=== PATIENT | male | born 1990 | race Caucasian/White ===

== ENCOUNTER 2017-07-09 14:02 | Emergency (ER) | payer MEDICARE, MEDICAID ==
--- NOTE | 2017-07-09 15:52 | ED Physician Documentation ---
PD HPI HEENT - Stated complaint Stated Complaint: THROAT PX - Chief complaint Chief Complaint: Heent - History obtained from History obtained from: Patient - History of Present Illness Timing - onset: How many days ago (6-7) Timing - duration: Days (6-7) Timing - details: Gradual onset, Still present Location: Throat Worsens: Swalllowing Associated symptoms: Swollen nodes, Other (sore throat). No: Fever, Unable to swallow, Facial swelling Similar symptoms before: Diagnosis (has had tonsillitis once or twice a year for the past several years.) Recently seen: Not recently seen Review of Systems Constitutional: denies: Fever, Chills Nose: denies: Rhinorrhea / runny nose, Congestion Throat: reports: Sore throat, Swollen tonsils Respiratory: denies: Dyspnea, Cough GI: denies: Nausea, Vomiting, Diarrhea PD PAST MEDICAL HISTORY - Past Medical History Cardiovascular: None Respiratory: None Neuro: None Endocrine/Autoimmune: None - Present Medications Home Medications: Ambulatory Orders Medication Instructions Recorded Confirmed Cephalexin [Keflex] 500 mg PO TID #24 capsule 07/09/17 Dexamethasone [Decadron] 4 mg PO DAILY #5 tablet 07/09/17 lamoTRIgine [LaMICtal] 300 mg PO DAILY 07/09/17 07/09/17 - Allergies Allergies/Adverse Reactions: Allergies Allergy/AdvReac Type Severity Reaction Status Date / Time No Known Drug Allergies Allergy Verified 07/09/17 14:08 PD ED PE NORMAL - Vitals Vital signs reviewed: Yes - General General: Alert and oriented X 3, No acute distress (mild hoarseness of voice. ) , Well developed/nourished - HEENT HEENT: No: Pharynx benign (tonsils very enlarged with exudate, with mild right peritonsillar edema but no true abscess appearance as yet. ) - Neck Neck: Supple, no meningeal sign, Other (anterior adenopathy. ) - Cardiac Cardiac: RRR, No murmur - Respiratory Respiratory: Clear bilaterally - Abdomen Abdomen: Soft, Non tender - Derm Derm: Normal color, Warm and dry, No rash Results - Vitals Vitals: Vital Signs - 24 hr 07/09/17 07/09/17 14:05 16:32 Temperature 35.9 C L 36.6 C Heart Rate 78 67 Respiratory 18 18 Rate Blood Pressure 128/79 110/62 O2 Saturation 98 98 Oxygen O2 Source Room air PD MEDICAL DECISION MAKING - ED course Complexity details: considered differential (has appearance of tonsillitis and some swelling right peritonsillar, so concern for early peritonsillar abscess. ) , d/w patient Departure - Departure Disposition: 01 Home, Self Care Clinical Impression: Exudative tonsillitis Condition: Stable Record reviewed to determine appropriate education?: Yes Instructions: ED Strep Pharyngitis Poss Follow-Up: [facility] [Provider Group] Prescriptions: Cephalexin [Keflex] 500 mg PO TID #24 capsule Dexamethasone [Decadron] 4 mg PO DAILY #5 tablet Comments: Cephalexin three times daily as directed. Decadron to assist with swelling daily for 5 days. Continue Tylenol or ibuprofen if needed for pain and fevers. Drink lots of fluids. You can call the ear nose and throat office to set up an appointment and discuss with them the criteria for tonsillectomy given the recurrent infections you have had. Discharge Date/Time: 07/09/17 16:32
[2017-07-09] MEDS ORDERED: cephALEXin 250 MG CAPSULE PO STA (16:11)
[2017-07-09] MEDS ORDERED: DEXAMETHASONE 10 MG/ML VIAL PO STA (16:11)
[2017-07-09] MEDS ORDERED: CHERRY SYRUP 10 ML UDC PO ONE (16:30)
[2017-07-09 16:34] VITALS: BP 110/62
== END 2017-07-09 16:32 | disposition home or self-care (01) ==
LOC: ED 14:02
DX: J03.90 Acute tonsillitis, unspecified (principal)
CPT/HCPCS: 99283; A9270; 87430

== ENCOUNTER 2019-08-12 17:33 | Outpatient (CLI) | payer MEDICARE, MEDICAID | END 2019-08-12 17:34 | disposition critical access hospital (66) | LOC: EMS 17:33 | PROVIDERS: ATTEND Surgery | DX: N50.819 Testicular pain, unspecified (principal) | CPT/HCPCS: A0425; A0429 ==

== ENCOUNTER 2019-08-12 17:52 | Emergency (ER) | payer MEDICARE, MEDICAID ==
--- NOTE | 2019-08-12 17:57 | ED Physician Documentation ---
PD HPI MALE - Stated complaint Stated Complaint: MALE - History obtained from History obtained from: Patient (29-year-old gentleman who is been having ongoing problem with the left testicle for the last month and a half. States that several times now it has twisted and he twisted back. Today he had this happen and he could not twist it back. Pain at this point is a 0 but a 2 on the ride up here. Denies urinary complaints. Has not seen a doctor for this. Was planning to see his primary care physician tomorrow for this.) Review of Systems Ten Systems: 10 systems reviewed and negative Eyes: reports: Reviewed and negative Throat: reports: Reviewed and negative Cardiac: reports: Reviewed and negative Respiratory: reports: Reviewed and negative PD PAST MEDICAL HISTORY - Past Medical History Cardiovascular: None Respiratory: None Endocrine/Autoimmune: None - Present Medications Home Medications: Ambulatory Orders Medication Instructions Recorded Confirmed Cephalexin [Keflex] 500 mg PO TID #24 capsule 07/09/17 dexAMETHasone [Decadron] 4 mg PO DAILY #5 tablet 07/09/17 lamoTRIgine [LaMICtal] 300 mg PO DAILY 07/09/17 07/09/17 - Allergies Allergies/Adverse Reactions: Allergies Allergy/AdvReac Type Severity Reaction Status Date / Time No Known Drug Allergies Allergy Verified 08/12/19 17:58 - Social History Does the pt smoke?: No Smoking Status: Never smoker - Family History Family history: reports: Non contributory PD ED PE NORMAL - Vitals Vital signs reviewed: Yes - General General: Alert and oriented X 3, No acute distress - HEENT HEENT: PERRL, EOMI - Neck Neck: Supple, no meningeal sign, No bony TTP - Cardiac Cardiac: RRR, No murmur - Respiratory Respiratory: No respiratory distress, Clear bilaterally - Abdomen Abdomen: Soft, Non tender - Male Male : Other (Left testicle lie is normal, normal cremaster reflex. Nontender except maybe a slight amount of tenderness at the epididymis. Nonswollen.) - Back Back: No CVA TTP, No spinal TTP - Derm Derm: Normal color, Warm and dry - Extremities Extremities: No edema, No calf tenderness / cord - Neuro Neuro: Alert and oriented X 3, Normal speech Results - Vitals Vitals: Vital Signs - 24 hr 08/12/19 17:55 Temperature 36.8 C Heart Rate 83 Respiratory 17 Rate Blood Pressure 149/86 H O2 Saturation 98 Oxygen O2 Source Room air - Labs Labs: Laboratory Tests 08/12/19 19:04 Urine Color YELLOW Urine Clarity CLEAR Urine pH 7.0 Ur Specific Imogene <=1.005 Urine Protein NEGATIVE Urine Glucose (UA) NEGATIVE Urine Ketones NEGATIVE Urine Occult Blood NEGATIVE Urine Nitrite NEGATIVE Urine Bilirubin NEGATIVE Urine Urobilinogen 0.2 (NORMAL) Ur Leukocyte Esterase NEGATIVE Ur Microscopic Review NOT INDICATED Urine Culture Comments NOT INDICATED PD MEDICAL DECISION MAKING - ED course ED course: He presents with a chief complaint of a "twisted testicle." That said his pain and exam are not too suggestive of a torsion. Ultrasound is ordered. Departure - Departure Disposition: 01 Home, Self Care Clinical Impression: Testicular pain, left Condition: Good Record reviewed to determine appropriate education?: Yes Instructions: ED Testicular Pain [facility] Comments: Your ultrasound is normal, this makes torsion very unlikely. Return if pain recurs. Followup with your physician tomorrow as scheduled.
[2019-08-12 19:12] LABS: BILIRUBIN,URINE NEGATIVE (NEGATIVE); GLUCOSE, URINE (UA) NEGATIVE (NEGATIVE); KETONES,URINE (UA) NEGATIVE (NEGATIVE); LEUKOCYTE ESTERASE, URINE NEGATIVE (NEGATIVE); NITRITE,URINE NEGATIVE (NEGATIVE); OCCULT BLOOD,URINE NEGATIVE (NEGATIVE); PROTEIN,URINE NEGATIVE (NEGATIVE); UROBILINOGEN,URINE 0.2 (NORMAL) E.U./dL (NORMAL)
[2019-08-12 19:13] LABS: CLARITY,URINE CLEAR (CLEAR)
--- NOTE | 2019-08-12 19:33 | Ultrasound Report ---
Reason: L testicle pain Procedure Date: 08/12/2019 Accession Number: [id number] / [id number] Procedure: US - Testicle w/Doppler CPT Code: Final Report FULL RESULT: EXAM: SCROTAL ULTRASOUND EXAM DATE: 08/12/2019 07:01 PM. CLINICAL HISTORY: L testicle pain. COMPARISON: None. TECHNIQUE: Real-time scanning was performed with static images obtained. Color-flow images were utilized. FINDINGS: Right: Testis: 4.3 x 2.3 x 3.3 cm. Normal size and echotexture. No mass, calcification, or abnormal blood flow. Epididymis: 0.6 x 1.6 x 1.8 cm. Normal size and echotexture. A subcentimeter cyst noted. no abnormal blood flow. Hydrocele: None. Varicocele: None. Left: Testis: 4.3 x 2.2 x 3.2 cm. Normal size and echotexture. No mass, calcification, or abnormal blood flow. Epididymis: 0.9 x 1.5 x 1.1 cm. Normal size and echotexture.A subcentimeter cyst noted. No abnormal blood flow. Hydrocele: None. Varicocele: None. IMPRESSION: Normal scrotal ultrasound. [facility]
[2019-08-12 20:00] VITALS: BP 114/69
== END 2019-08-12 20:01 | disposition home or self-care (01) ==
LOC: EDUNIT# → ED 17:52
DX: N50.812 Left testicular pain (principal)
CPT/HCPCS: 76870; 81001; 81003; 87086; 93975; 99284

== ENCOUNTER 2020-08-17 08:00 | Outpatient (CLI) | payer MEDICARE, MEDICAID | END 2020-08-17 23:59 | disposition home or self-care (01) | LOC: LAB.N 08:00 | PROVIDERS: ATTEND Nurse Practitioner | DX: J03.90 Acute tonsillitis, unspecified (principal) | CPT/HCPCS: 81599; 87070; 87491; 87591 ==